=== PATIENT | male | born 2000 | race Two or more races ===

== ENCOUNTER 2020-04-20 11:14 | Observation (INO) | payer OTHER ==
[2020-04-20 11:20] VITALS: BMI 27.8
--- NOTE | 2020-04-20 12:21 | PDOC ---
History of Present Illness <Misty Montelongo - Last Filed: 04/20/20 14:38> - General History Source: Patient Exam Limitations: No Limitations - History of Present Illness Travel History: No Initial Comments: 04/20/20 12:13 19 y/o male presents to ED with complaints of palpitations for the past 6 days without shortness of breath, chest pain, dizziness, nausea, or diaphoresis. Patient feels it may be related to his drinking since he states has been drinking more often over the past month drinking approximately 2 glasses of vodka every other day patient has no other complaints at this time denies any medical history. Patient denies any increased stress and denies any aggravating or alleviating factors stating symptoms only last seconds. Patient denies any cardiac familial history Timing/Duration: reports: intermittent Quality: reports: mild Pain Radiation: reports: no radiation Aggravating Factors: improves with: None Alleviating Factors: improves with: None <Jenni Duong - Last Filed: 04/20/20 14:55> - General Chief Complaint: Palpitations Stated Complaint: CHEST DISCOMFORT Time Seen by Provider: 04/20/20 11:38 Past History <Misty Montelongo - Last Filed: 04/20/20 14:38> - Travel History Traveled outside of the country in the last 30 days: No Close contact w/someone who was outside of country & ill: No - Medical History COPD: No - Immunization History Immunization Up to Date: No - Psycho-Social/Smoking History Patient Lives Alone: No Lives with/in: parents Smoking History: Current every day smoker Information on smoking cessation initiated: No - Substance Abuse Hx (Audit-C & DAST Scrn) How often the patient has a drink containing alcohol: 2-3 times / week Number of drinks the patient has on a typical day: 1 or 2 How often the patient has six or more drinks on one occasion: Never Score: In Men: 4 or > Positive; In Women: 3 or > Positive: 3 Screen Result (Pos requires Nsg. Audit-10AR): Negative In the last yr the pt used illegal drug/Rx for NonMed reason: No Score: Yes response is considered Positive: 0 Screen Result (Positive result requires Nsg. DAST-10): Negative <Jenni Duong - Last Filed: 04/20/20 14:55> - Medical History Allergies/Adverse Reactions: Allergies Allergy/AdvReac Type Severity Reaction Status Date / Time No Known Allergies Allergy Verified 04/20/20 11:18 Review of Systems - Review of Systems Able to Perform ROS?: Yes Constitutional: No: Symptoms Reported HEENTM: No: Symptoms Reported Respiratory: No: Symptoms reported Cardiac (ROS): Yes: Palpitations ABD/GI: No: Symptoms Reported : No: Symptoms Reported Musculoskeletal: No: Symptoms Reported Integumentary: No: Symptoms Reported Neurological: No: Symptoms reported Endocrine: No: Symptoms Reported Hematologic/Lymphatic: No: Symptoms Reported <Jenni Duong - Last Filed: 04/20/20 14:55> *Physical Exam - Vital Signs Last Vital Signs Temp Pulse Resp BP Pulse Ox 98.1 F 95 H 18 153/93 98 04/20/20 11:18 04/20/20 11:18 04/20/20 11:18 04/20/20 11:18 04/20/20 11:20 <MontelongoMistyshad Medleywei - Last Filed: 04/20/20 14:38> - Vital Signs Last Vital Signs Temp Pulse Resp BP Pulse Ox 98.1 F 95 H 18 153/93 100 04/20/20 11:18 04/20/20 11:18 04/20/20 11:18 04/20/20 11:18 04/20/20 11:18 - Physical Exam General Appearance: Yes: Nourished, Appropriately Dressed. No: Apparent Distress HEENT: negative: Pale Conjunctivae Neck: positive: Supple Respiratory/Chest: positive: Lungs Clear, Normal Breath Sounds. negative: Chest Tender, Respiratory Distress, Accessory Muscle Use Cardiovascular: positive: Regular Rhythm, Regular Rate. negative: Murmur Gastrointestinal/Abdominal: positive: Soft. negative: Tenderness Extremity: positive: Normal Inspection Integumentary: positive: Normal Color, Warm, Moist Neurologic: positive: Normal Mood/Affect (Appears calm), Motor Strength 5/5 (Ambulatory) <Jenni Duong - Last Filed: 04/20/20 14:55> Heart Score/ECG Review #2 ECG reviewed & interpreted by me at: 14:54 General ECG Interpretation: Sinus Rhythm (rate 61, + early repolarization) - ECG Intrepretation Rhythm: Regular Rhythm (Normal sinus rhythm at 95. No ST elevation or depression. Intervals are regular. QTc 457 ms) <Jenni Duong - Last Filed: 04/20/20 14:55> ED Treatment Course - LABORATORY CBC & Chemistry Diagram: 04/20/20 12:15 - ADDITIONAL ORDERS Additional order review: Laboratory Results 04/20/20 12:15 Sodium 138 Potassium 3.9 Chloride 107 Carbon Dioxide 25 Anion Gap 6 L BUN 14.3 Creatinine 0.8 Est GFR (CKD-EPI)AfAm 148.00 Est GFR (CKD-EPI)NonAf 127.70 Random Glucose 97 Calcium 9.2 Magnesium 2.5 H Total Bilirubin 0.9 AST 38 H ALT 60 Alkaline Phosphatase 87 Creatine Kinase 311 H Creatine Kinase Index 1.3 CK-MB (CK-2) 4.3 H Troponin I 0.07 H Total Protein 7.7 Albumin 4.3 TSH 1.33 <Misty Montelongo - Last Filed: 04/20/20 14:38> - LABORATORY CBC & Chemistry Diagram: 04/20/20 12:15 <Jenni Duong - Last Filed: 04/20/20 14:55> Medical Decision Making - Medical Decision Making 04/20/20 14:31 The patient was seen and evaluated in conjunction with midlevel provider under my direct supervision, ancillary studies were reviewed. I agree with the plan as outlined OTR VAN [employer] Ad. HPI, workup/dispo as outlined. VS reviewed, labs/lytes wnl. cbc +alcohol user. trop is 0.07, EKG is sinus rhythm, [address] elevations or depressions, there are some q waves in inferior leads. ?NSTEMI vs. alcohol induced cardiomyopathy or myocarditis based on story. admit tele 04/20/20 14:38 <Misty Montelongo - Last Filed: 04/20/20 14:38> - Medical Decision Making 04/20/20 12:25 Chief complaint: Palpitations intermittently for the past 6 days without alleviating or aggravating factors. Patient has no other complaints is concerned that maybe the drinking has attributed to his symptoms. Exam: Patient with normal vital signs EKG normal sinus rhythm. Normal PE. 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 Case discussed with attending. Patient ordered for second Trope, fluids, IV cardiac monitoring drug tox and alcohol level. We will admit to hospitalist. Patient aware patient moved to holding and is currently asymptomatic. 04/20/20 14:52 Case discussed with hospitalist and will admit to Dr. Fabian. Second EKG normal sinus with a rate of 61 with early repolarization. Admission initiated <Jenni Duong - Last Filed: 04/20/20 14:55> Discharge <Misty Montelongo - Last Filed: 04/20/20 14:38> - Discharge Information Problems reviewed: Yes - Admission Yes <Jenni Duong - Last Filed: 04/20/20 14:55> - Discharge Information Clinical Impression/Diagnosis: Elevated troponin, Palpitations
[2020-04-20 13:12] LABS: ALBUMIN 4.3 g/dl (3.4-5.0); BILIRUBIN,TOTAL 0.9 mg/dL (0.2-1); BLOOD UREA NITROGEN 14.3 mg/dL (7-18); CALCIUM 9.2 mg/dL (8.5-10.1); CREATININE 0.8 mg/dL (0.55-1.3); MAGNESIUM 2.5 mg/dL (1.8-2.4); POTASSIUM 3.9 mmol/L (3.5-5.1); TOT PROT 7.7 g/dl (6.4-8.2)
[2020-04-20] MEDS ORDERED: SODIUM CHLORIDE 1,000 ML IV STA (14:37)
[2020-04-20 15:36] LABS: BASO % 0.5 % (0-2.0); EOS % 1.8 % (0-4.5); HEMOGLOBIN 17.5 GM/dL (11.7-16.9); LYMPH % 26.8 % (8-40); MCH 29.3 pg (25.7-33.7); MCHC 34.4 g/dl (32.0-35.9); MEAN CELL VOLUME 85.1 fl (80-96); MONO % 5.9 % (3.8-10.2); PLATELET COUNT 192 K/MM3 (134-434); RBC 5.99 M/mm3 (4.00-5.60); RDW 13.2 % (11.9-15.9); WHITE BLOOD COUNT 6.6 K/mm3 (4.0-10.0)
[2020-04-20] MEDS ORDERED: SODIUM CHLORIDE 500 ML IV STA (15:38)
--- NOTE | 2020-04-20 15:43 | HP ---
CHIEF COMPLAINT: I have rapid heart beats PCP: none HISTORY OF PRESENT ILLNESS: 19 Y M with no significant PMH presents to ER with complaints of palpitation for 6 days. He report it was sudden onset, first episode, no prior, no initiating factor/events, episodic, lasting anywhere form seconds to minutes, and resolves spontaneously. He describes it as "skipped beat followed by few rapid beats". Associated with chest tightness at times, but he denies any associated headache, nausea, vomiting, diaphoresis, tingling, numbness, SOB during the episodes. He denies any illicit drugs, caffeine, workout supplements, weight loss supplements, herbal medication use but admits to everyday alcohol and cigarettes use. He reports that he drinks about 2 glasses of vodka every day, for about 1 year and smokes 2-3 cigs per/day, for 6 months. Patient reports cardiac disease in his father(unknown). No family history of sudden cardiac deaths, no other relatives with cardiac diseases. ER course was notable for: (1) Trop 0.07 (2) ALKP 311 (3) Recent Travel: Denies PAST MEDICAL HISTORY: denies PAST SURGICAL HISTORY: denies Social History: Smoking:as above in HPI Alcohol: above in HPI Drugs: denies Allergies No Known Allergies Allergy (Verified 04/20/20 11:18) HOME MEDICATIONS: REVIEW OF SYSTEMS CONSTITUTIONAL: Absent: fever, chills, diaphoresis, generalized weakness, malaise, loss of appetite, weight change HEENT: Absent: rhinorrhea, nasal congestion, throat pain, throat swelling, difficulty swallowing, visual changes CARDIOVASCULAR: Absent: chest pain, syncope, palpitations, irregular heart rate, lightheadedness, peripheral edema RESPIRATORY: Absent: cough, shortness of breath, dyspnea with exertion, orthopnea, wheezing, GASTROINTESTINAL: Absent: abdominal pain, abdominal distension, nausea, vomiting, diarrhea, constipation, melena, hematochezia GENITOURINARY: Absent: dysuria, frequency, urgency, hesitancy, hematuria, flank pain, genital pain MUSCULOSKELETAL: Absent: myalgia, arthralgia, joint swelling, back pain, neck pain SKIN: Absent: rash, itching, pallor HEMATOLOGIC/IMMUNOLOGIC: Absent: easy bleeding, easy bruising, lymphadenopathy, frequent infections ENDOCRINE: Absent: unexplained weight gain, unexplained weight loss, heat intolerance, cold intolerance NEUROLOGIC: Absent: headache, focal weakness or paresthesias, dizziness, unsteady gait, seizure, mental status changes, bladder or bowel incontinence PSYCHIATRIC: Absent: anxiety, depression, suicidal or homicidal ideation, hallucinations. PHYSICAL EXAMINATION Vital Signs - 24 hr 04/20/20 04/20/20 11:18 11:20 Temperature 98.1 F Pulse Rate 95 H Respiratory 18 Rate Blood Pressure 153/93 O2 Sat by Pulse 100 98 Oximetry (%) GENERAL: Awake, alert, and fully oriented, in no acute distress. HEAD: Normal with no signs of trauma. EYES: Pupils equal, round and reactive to light, extraocular movements intact, sclera anicteric, conjunctiva clear. No lid lag. EARS, NOSE, THROAT: Ears normal, nares patent, oropharynx clear without exudates. Moist mucous membranes. NECK: Normal range of motion, supple without lymphadenopathy, JVD, or masses, no thyromegly, no nodules LUNGS: Breath sounds equal, clear to auscultation bilaterally. No wheezes, and no crackles. No accessory muscle use. HEART: Regular rate and rhythm with episodes of aberrant beat, normal S1 and S2 without murmur, rub or gallop. ABDOMEN: Soft, nontender, not distended, normoactive bowel sounds, no guarding, no rebound, no masses. No hepatomegaly or splenomegaly. MUSCULOSKELETAL: Normal range of motion at all joints. No bony deformities or tenderness. No CVA tenderness. UPPER EXTREMITIES: 2+ pulses, warm, well-perfused. No cyanosis. No clubbing. No peripheral edema. LOWER EXTREMITIES: 2+ pulses, warm, well-perfused. No calf tenderness. No peripheral edema. NEUROLOGICAL: Cranial nerves II-XII intact. Normal speech. Normal gait. PSYCHIATRIC: Cooperative. Good eye contact. Appropriate mood and affect. SKIN: Warm, dry, normal turgor, no rashes or lesions noted, normal capillary refill. Laboratory Results - last 24 hr 04/20/20 04/20/20 12:15 14:43 WBC 6.6 RBC 5.99 H Hgb 17.5 H Hct 51.0 H MCV 85.1 MCH 29.3 MCHC 34.4 RDW 13.2 Plt Count 192 MPV 9.0 Absolute Neuts (auto) 4.3 Neutrophils % 65.0 Lymphocytes % 26.8 Monocytes % 5.9 Eosinophils % 1.8 Basophils % 0.5 Nucleated RBC % 2 H Sodium 138 Potassium 3.9 Chloride 107 Carbon Dioxide 25 Anion Gap 6 L BUN 14.3 Creatinine 0.8 Est GFR (CKD-EPI)AfAm 148.00 Est GFR (CKD-EPI)NonAf 127.70 Random Glucose 97 Calcium 9.2 Magnesium 2.5 H Total Bilirubin 0.9 AST 38 H ALT 60 Alkaline Phosphatase 87 Creatine Kinase 311 H Creatine Kinase Index 1.3 CK-MB (CK-2) 4.3 H Troponin I 0.07 H Total Protein 7.7 Albumin 4.3 TSH 1.33 ASSESSMENT/PLAN: 19 Y M with no significant PMH presents to ER with complaints of palpitation for 6 days #Palpitations - PACs vs PVCs vs Alcohol induced afib - Admitted to Obs, continuos cardiac monitoring overnight - will trend Trops, 0.07, 0.05 - Utox: negative - If overnight events are unrevealing, patient may benefit from cardiology outpatient evaluation with cardiac event monitor #Elevated troponin - Likely 2/2 demand - Trending trops - EKG: NSR, No acute ST/T wave changes #Polycythemia - will need outpt evaluation with heme-onc - possible etiology: TERRENCE, will need sleep study out pt #DVT ppx -SCDs #Dispo: - will continue to monitor in observation Family Medical History Family History: As Documented Visit type - Emergency Visit Emergency Visit: Yes ED Registration Date: 04/20/20 Care time: The patient presented to the Emergency Department on the above date and was hospitalized for further evaluation of their emergent condition. - New Patient This patient is new to me today: No - Critical Care Critical Care patient: No ATTENDING PHYSICIAN STATEMENT I saw and evaluated the patient. I reviewed the resident's note and discussed the case with the resident. I agree with the resident's findings and plan as documented. SUBJECTIVE: OBJECTIVE: ASSESSMENT AND PLAN:
[2020-04-20 15:44] LABS: COCAINE, UR NEGATIVE ng/ml (CUTOFF=300); OPIATES, URI NEGATIVE ng/ml (CUTOFF=300); PHENCYCLIDINE,URINE NEGATIVE ng/ml (CUTOFF=25); URINE AMPHETAMINES NEGATIVE ng/ml (CUTOFF=500); URINE BARBITURATES NEGATIVE ng/ml (CUTOFF=200)
[2020-04-20 15:56] LABS: METHADONE, UR NEGATIVE ng/ml (CUTOFF=300); URINE BENZODIAZEPINES NEGATIVE ng/ml (CUTOFF=200)
--- NOTE | 2020-04-20 17:08 | PN ---
Teaching Attending Note Name of Resident: Kait Harrison ATTENDING PHYSICIAN STATEMENT I saw and evaluated the patient. I reviewed the resident's note and discussed the case with the resident. I agree with the resident's findings and plan as documented. SUBJECTIVE: 19yo M with no PMHx who presents today with persistent palpitations. Patient reports they started a week prior with intermittent episodes lasting for various times. Patient endorses associated chest tightness during episodes, but denies any diaphoresis or SOB during. Patient notes that he has been drinking Vodka everyday over several months. he denies any cocaine, crack, or ectasy use. Patient reports his father has a history of cardiac disease related to his drinking (father age 50 yo), however no other primary relatives have cardiac disease. Patient denies fever/chills, recent illness, SOB, CP, abdominal pain, dysuria, polyuria, diarrhea/constipation, n/v, cold/heat intolerance, tremoring, recent weight changes. OBJECTIVE: Vital Signs Temperature 98.0 F 04/20/20 15:39 Pulse Rate 75 04/20/20 15:39 Respiratory Rate 17 04/20/20 15:39 Blood Pressure 132/78 04/20/20 15:39 O2 Sat by Pulse Oximetry (%) 100 04/20/20 15:39 PE: Gen: NAd, awake, alert, oriented x3 HEENT: nc/At, SHELL, sclera anicteric, MMM Neck: No JVD, no thyromegaly or nodularity LUNG: CTA b/l without wheezes or rales CARD: RRR with episodes of abherrant beat, no overt murmurs. S1 and S2 present and normal ABD: soft, NT/ND, + Bs, no hepatomegaly EXT: 2+ pulses, no edema CBC, BMP 04/20/20 14:43 04/20/20 12:15 ASSESSMENT AND PLAN: Palpitations Alcohol Use Polycythemia Elevated Troponin --PAC vs. PVC vs. alcohol induced afib --Cardiac monitoring overnight --Trend troponins to peak --Monitor polycythemia through outpatient setting; may need sleep screen if no clear etiology found --If overnight monitoring is unrevealing may need to be d/c with cardiology fol low-up for event monitor Dispo: Observation Marco Fabian, - IM
--- NOTE | 2020-04-20 18:27 | CON.CARD ---
Consult Consult Specialty:: Cardiology Referred by:: Hospitalist Medicine Reason for Consultation:: Palpitations - History of Present Illness Chief Complaint: Palpitations History of Present Illness: 19yo M with no PMHx who presents today with intermmitent palpitations without associated chest tightness, diaphoresis, SOB, near or true syncope. Patient notes that he has been drinking Vodka everyday over several months and smokes tobacco. he denies any cocaine, crack, or ectasy use. Patient reports his father has a history of cardiac disease related to his drinking (father age 50 yo), however no other primary relatives have cardiac disease. No sustained arrhythmias on property assessment monitor thus far. - History Source History Provided By: Patient Limitations to Obtaining History: No Limitations - Smoking History Smoking history: Current every day smoker Home Medications - Allergies Allergies/Adverse Reactions: Allergies Allergy/AdvReac Type Severity Reaction Status Date / Time No Known Allergies Allergy Verified 04/20/20 11:18 Review of Systems - Review of Systems Cardiovascular: reports: Palpitations Vital Signs: Vital Signs Temperature 98.0 F 04/20/20 15:39 Pulse Rate 75 04/20/20 15:39 Respiratory Rate 17 04/20/20 15:39 Blood Pressure 132/78 04/20/20 15:39 O2 Sat by Pulse Oximetry (%) 100 04/20/20 15:39 Constitutional: Yes: No Distress, Calm Neck: Yes: Supple Respiratory: Yes: Regular, CTA Bilaterally Gastrointestinal: Yes: Normal Bowel Sounds, Soft Cardiovascular: Yes: Regular Rate and Rhythm JVD: No Carotid Bruit: No Heart Sounds: Yes: S1, S2 Edema: No - Other Data Labs, Other Data: CBC, BMP 04/20/20 14:43 04/20/20 12:15 Troponin, BNP 04/20/20 04/20/20 12:15 15:00 Troponin I 0.07 H 0.05 Troponin, BNP 04/20/20 04/20/20 12:15 15:00 Troponin I 0.07 H 0.05 #1 NSR @ 95 w/o ST-T changes #2 NSR @ 61 w/o ST-T changes Ejection Fraction %: LVEF > or = 40 % Problem List - Problems (1) Demand ischemia Code(s): I24.8 - OTHER FORMS OF ACUTE ISCHEMIC HEART DISEASE (2) Alcohol abuse Code(s): F10.10 - ALCOHOL ABUSE, UNCOMPLICATED (3) Palpitations Code(s): R00.2 - PALPITATIONS (4) Polycythemia Code(s): D75.1 - SECONDARY POLYCYTHEMIA Assessment/Plan 1. Palpitations, consider PAC vs. PVC vs. alcohol induced afib 2. Alcohol and tobacco abuse 3. Polycythemia 4. Demand ischemia P: 1. Telemetry monitoring to assess sustained arrhythmia 2. Troponins downtrending 3. Monitor polycythemia through outpatient setting, may be 2/2 smoking, may need sleep screen if no clear etiology found 4. If overnight monitoring is unrevealing may benefit from outpatient holter monitor 5. Counselled on ETOH and tobacco abstinence 6. Thank you for consultative opportunity
[2020-04-21 07:43] LABS: BASO % 0.3 % (0-2.0); EOS % 3.2 % (0-4.5); HEMATOCRIT 50.8 % (35.4-49); HEMOGLOBIN 17.4 GM/dL (11.7-16.9); LYMPH % 36.1 % (8-40); MCH 29.1 pg (25.7-33.7); MCHC 34.3 g/dl (32.0-35.9); MEAN CELL VOLUME 84.7 fl (80-96); MEAN PLT VOLUME 8.7 fl (7.5-11.1); MONO % 7.6 % (3.8-10.2); NEUT % 52.8 % (42.8-82.8); PLATELET COUNT 181 K/MM3 (134-434); WHITE BLOOD COUNT 6.1 K/mm3 (4.0-10.0)
[2020-04-21 07:58] LABS: BILIRUBIN,TOTAL 1.3 mg/dL (0.2-1); BLOOD UREA NITROGEN 10.6 mg/dL (7-18); CALCIUM 8.8 mg/dL (8.5-10.1); CREATININE 0.9 mg/dL (0.55-1.3); MAGNESIUM 2.3 mg/dL (1.8-2.4); PHOSPHOROUS 4.4 mg/dL (2.5-4.9); POTASSIUM 3.5 mmol/L (3.5-5.1); TOT PROT 7.3 g/dl (6.4-8.2)
--- NOTE | 2020-04-21 10:00 | PN ---
Progress Note, Physician History of Present Illness: 19yo M with no PMHx who presents today with intermmitent palpitations without associated chest tightness, diaphoresis, SOB, near or true syncope. Patient notes that he has been drinking Vodka everyday over several months and smokes tobacco. he denies any cocaine, crack, or ectasy use. Patient reports his father has a history of cardiac disease related to his drinking (father age 50 yo), ho wever no other primary relatives have cardiac disease. No sustained arrhythmias on ekg monitor tech thus far. - Objective Vital Signs: Vital Signs Temperature 97.9 F 04/21/20 06:17 Pulse Rate 64 04/21/20 06:17 Respiratory Rate 16 04/21/20 06:46 Blood Pressure 123/59 L 04/21/20 06:17 O2 Sat by Pulse Oximetry (%) 100 04/21/20 06:46 Eyes: Yes: WNL, Conjunctiva Clear, EOM Intact HENT: Yes: WNL, Atraumatic, Normocephalic Neck: Yes: WNL, Supple, Trachea Midline Cardiovascular: Yes: WNL, Regular Rate and Rhythm Respiratory: Yes: WNL, Regular, CTA Bilaterally Gastrointestinal: Yes: WNL, Normal Bowel Sounds Genitourinary: Yes: WNL Musculoskeletal: Yes: WNL Extremities: Yes: WNL Edema: No Integumentary: Yes: WNL Neurological: Yes: WNL, Alert, Oriented ...Motor Strength: WNL Psychiatric: Yes: WNL Labs: CBC, BMP 04/21/20 06:55 04/21/20 06:55 Assessment/Plan - Problems (1) Demand ischemia Code(s): I24.8 - OTHER FORMS OF ACUTE ISCHEMIC HEART DISEASE (2) Alcohol abuse Code(s): F10.10 - ALCOHOL ABUSE, UNCOMPLICATED (3) Palpitations Code(s): R00.2 - PALPITATIONS (4) Polycythemia Code(s): D75.1 - SECONDARY POLYCYTHEMIA Assessment/Plan 1. Palpitations, consider PAC vs. PVC vs. alcohol induced afib 2. Alcohol and tobacco abuse 3. Polycythemia 4. Demand ischemia P: 1. Telemetry monitoring to assess sustained arrhythmia 2. Troponins downtrending 3. Monitor polycythemia through outpatient setting, may be 2/2 smoking, may need sleep screen if no clear etiology found 4.Will need ECHO as inpatient prior to discharge to r/o ETOH induced ca rdiomyopathy. 5. Counselled on ETOH and tobacco abstinence
--- NOTE | 2020-04-21 14:13 | PN ---
Physical Exam: SUBJECTIVE: Patient seen and examined at bedside. No acute events reported overnight. This morning, patient has no concerns or complaints. OBJECTIVE: Vital Signs Period Temp Pulse Resp BP Sys/Bernstein Pulse Ox Last 24 Hr 97.8 F-98.3 F 56-75 16-18 120-155/59-88 99-100 GENERAL: AAOx3, in no acute distress HEENT: NCAT, PERRLA, EOMI, sclera anicteric, conjunctiva clear, oropharynx clear w/o exudates. MMM. NECK: Normal ROM, supple, no lymphadenopathy, JVD, or masses LUNGS: CTABL no wheezes/ rhonchi/ rales. No distress, speaks in full sentences. No increased work of breathing. HEART: RRR, normal S1 S2, no M/R/G, peripheral pulses 2+ and equal b/l ABDOMEN: Soft, NTND, + BS. No guarding or rebound. No hepatomegaly or splenomegaly. MSK: ROM WNL EXTREMITIES: Normal inspection. No peripheral edema. No clubbing or cyanosis. NEUROLOGICAL: CN II-XII intact. Normal speech, normal gait, no focal sensori motor deficits. SKIN: Warm, Dry, normal turgor, no rashes or lesions noted Laboratory Results - last 24 hr CBC, BMP 04/21/20 06:55 04/21/20 06:55 04/20/20 04/20/20 04/20/20 14:00 14:43 15:00 WBC 6.6 RBC 5.99 H Hgb 17.5 H Hct 51.0 H MCV 85.1 MCH 29.3 MCHC 34.4 RDW 13.2 Plt Count 192 MPV 9.0 Absolute Neuts (auto) 4.3 Neutrophils % 65.0 Lymphocytes % 26.8 Monocytes % 5.9 Eosinophils % 1.8 Basophils % 0.5 Nucleated RBC % 2 H Sodium Potassium Chloride Carbon Dioxide Anion Gap BUN Creatinine Est GFR (CKD-EPI)AfAm Est GFR (CKD-EPI)NonAf Random Glucose Calcium Phosphorus Magnesium Total Bilirubin AST ALT Alkaline Phosphatase Creatine Kinase 282 Creatine Kinase Index 1.4 CK-MB (CK-2) 4.0 H Troponin I 0.05 Total Protein Albumin TSH Opiates Screen Methadone Screen Barbiturate Screen Phencyclidine Screen Ur Amphetamines Screen MDMA (Ecstasy) Screen Benzodiazepines Screen Cocaine Screen U Marijuana (THC) Screen Alcohol, Quantitative < 3 COVID-19 (BOO) Not detected 04/20/20 04/20/20 04/21/20 15:00 22:00 06:55 WBC 6.1 RBC 6.00 H Hgb 17.4 H Hct 50.8 H MCV 84.7 MCH 29.1 MCHC 34.3 RDW 13.0 Plt Count 181 MPV 8.7 Absolute Neuts (auto) 3.2 Neutrophils % 52.8 Lymphocytes % 36.1 D Monocytes % 7.6 Eosinophils % 3.2 Basophils % 0.3 Nucleated RBC % 0 Sodium Potassium Chloride Carbon Dioxide Anion Gap BUN Creatinine Est GFR (CKD-EPI)AfAm Est GFR (CKD-EPI)NonAf Random Glucose Calcium Phosphorus Magnesium Total Bilirubin AST ALT Alkaline Phosphatase Creatine Kinase 233 Creatine Kinase Index 1.2 CK-MB (CK-2) 2.9 Troponin I 0.05 Total Protein Albumin TSH Opiates Screen Negative Methadone Screen Negative Barbiturate Screen Negative Phencyclidine Screen Negative Ur Amphetamines Screen Negative MDMA (Ecstasy) Screen Negative Benzodiazepines Screen Negative Cocaine Screen Negative U Marijuana (THC) Screen Negative Alcohol, Quantitative COVID-19 (BOO) 04/21/20 06:55 WBC RBC Hgb Hct MCV MCH MCHC RDW Plt Count MPV Absolute Neuts (auto) Neutrophils % Lymphocytes % Monocytes % Eosinophils % Basophils % Nucleated RBC % Sodium 139 Potassium 3.5 Chloride 105 Carbon Dioxide 27 Anion Gap 7 L BUN 10.6 Creatinine 0.9 Est GFR (CKD-EPI)AfAm 141.01 Est GFR (CKD-EPI)NonAf 121.66 Random Glucose 84 Calcium 8.8 Phosphorus 4.4 Magnesium 2.3 Total Bilirubin 1.3 H AST 34 ALT 58 Alkaline Phosphatase 81 Creatine Kinase Creatine Kinase Index CK-MB (CK-2) Troponin I 0.04 Total Protein 7.3 Albumin 4.0 TSH 2.18 D Opiates Screen Methadone Screen Barbiturate Screen Phencyclidine Screen Ur Amphetamines Screen MDMA (Ecstasy) Screen Benzodiazepines Screen Cocaine Screen U Marijuana (THC) Screen Alcohol, Quantitative COVID-19 (BOO) ASSESSMENT/PLAN: 19 Y M with no significant PMH presents to ER with complaints of palpitation for 7 days. Admitted for chest pain. #Palpitations - PACs vs PVCs vs Alcohol induced afib - continue to trend Trops, 0.07, 0.05, 0.04 - Utox: negative - Cardiology consulted: Pt. needs inpt echo before d/c to rule out alcohol induced cardiomyopathy. patient may benefit from cardiology outpatient evalu ation with cardiac event monitor -echo ordered #Elevated troponin - Likely 2/2 demand - Trending trops - EKG: NSR, No acute ST/T wave changes #Polycythemia - will need outpt evaluation with heme-onc - possible etiology: TERRENCE, will need sleep study out pt #FEN -no standing fluids -montior lytes; replete PRN -regular diet #Dispo: - will continue to monitor in observation Visit type - Emergency Visit Emergency Visit: No - New Patient This patient is new to me today: Yes Date on this admission: 04/21/20 - Critical Care Critical Care patient: No ATTENDING PHYSICIAN STATEMENT I saw and evaluated the patient. I reviewed the resident's note and discussed the case with the resident. I agree with the resident's findings and plan as documented. SUBJECTIVE: OBJECTIVE: ASSESSMENT AND PLAN:
--- NOTE | 2020-04-21 14:52 | PN ---
Teaching Attending Note Name of Resident: Jorge Quispe ATTENDING PHYSICIAN STATEMENT I saw and evaluated the patient. I reviewed the resident's note and discussed the case with the resident. I agree with the resident's findings and plan as documented. SUBJECTIVE: No chest pain today seen by bit bender. No arrhythmia on telemetry OBJECTIVE: Vital Signs Period Temp Pulse Resp BP Sys/Bernstein Pulse Ox Last 24 Hr 97.8 F-98.3 F 56-75 16-18 120-155/59-88 99-100 Patient is comfortable HEENT normal Neck supple no JVD Lungs clear no wheezing Abdomen nontender no organomegaly bowel sounds normal Extremities no edema no cyanosis normal pulses Neurologically he is alert awake oriented, nonfocal Skin no rash noted ASSESSMENT AND PLAN: Patient has a downtrending troponin and normal today. Seen by bit bender and recommended the patient should go for echocardiogram prior to discharge. He is pain-free at this time we will continue to watch him and will go for echo result before discharge.
--- NOTE | 2020-04-21 14:59 | EKG ---
Test Reason : Blood Pressure : / mmHG Vent. Rate : 095 BPM Atrial Rate : 095 BPM P-R Int : 136 ms QRS Dur : 084 ms QT Int : 364 ms P-R-T Axes : 074 090 059 degrees QTc Int : 457 ms NORMAL SINUS RHYTHM POSSIBLE LEFT ATRIAL ENLARGEMENT RIGHTWARD AXIS BORDERLINE ECG NO PREVIOUS ECGS AVAILABLE Confirmed by Westley Self ([id number]) on 04/21/2020 2:59:11 PM Referred By: Confirmed By:Westley Self
--- NOTE | 2020-04-21 14:59 | EKG ---
Test Reason : Blood Pressure : / mmHG Vent. Rate : 061 BPM Atrial Rate : 061 BPM P-R Int : 128 ms QRS Dur : 090 ms QT Int : 424 ms P-R-T Axes : 036 088 065 degrees QTc Int : 426 ms NORMAL SINUS RHYTHM EARLY REPOLARIZATION NORMAL ECG NO PREVIOUS ECGS AVAILABLE Confirmed by Westley Self ([id number]) on 04/21/2020 2:58:48 PM Referred By: Confirmed By:Westley Self
--- NOTE | 2020-04-21 15:20 | EKG ---
Test Reason : Blood Pressure : / mmHG Vent. Rate : 069 BPM Atrial Rate : 069 BPM P-R Int : 132 ms QRS Dur : 092 ms QT Int : 394 ms P-R-T Axes : 060 088 068 degrees QTc Int : 422 ms NORMAL SINUS RHYTHM NORMAL ECG WHEN COMPARED WITH ECG OF 20-APR-2020 14:46, NO SIGNIFICANT CHANGE WAS FOUND Confirmed by Westley Self ([id number]) on 04/21/2020 3:20:33 PM Referred By: Derrick CAMACHO Confirmed By:Westley Self
[2020-04-22 06:47] LABS: BASO % 0.5 % (0-2.0); EOS % 2.9 % (0-4.5); HEMATOCRIT 52.2 % (35.4-49); HEMOGLOBIN 17.9 GM/dL (11.7-16.9); LYMPH % 32.6 % (8-40); MCH 28.9 pg (25.7-33.7); MCHC 34.3 g/dl (32.0-35.9); MEAN CELL VOLUME 84.2 fl (80-96); MEAN PLT VOLUME 8.5 fl (7.5-11.1); MONO % 7.8 % (3.8-10.2); NEUT % 56.2 % (42.8-82.8); PLATELET COUNT 193 K/MM3 (134-434); RDW 12.8 % (11.9-15.9); WHITE BLOOD COUNT 6.3 K/mm3 (4.0-10.0)
[2020-04-22 07:18] LABS: ALBUMIN 4.1 g/dl (3.4-5.0); BILIRUBIN,DIRECT 0.3 mg/dL (0.0-0.2); BILIRUBIN,TOTAL 1.2 mg/dL (0.2-1); BLOOD UREA NITROGEN 14.7 mg/dL (7-18); CALCIUM 9.2 mg/dL (8.5-10.1); CREATININE 1.1 mg/dL (0.55-1.3); POTASSIUM 4.1 mmol/L (3.5-5.1); TOT PROT 7.6 g/dl (6.4-8.2)
--- NOTE | 2020-04-22 08:34 | PN ---
Progress Note, Physician History of Present Illness: 19yo M with no PMHx who presents today with intermmitent palpitations without associated chest tightness, diaphoresis, SOB, near or true syncope. Patient notes that he has been drinking Vodka everyday over several months and smokes tobacco. he denies any cocaine, crack, or ectasy use. Patient reports his father has a history of cardiac disease related to his drinking (father age 50 yo), ho wever no other primary relatives have cardiac disease. No sustained arrhythmias on clinical operations specialist thus far. - Objective Vital Signs: Vital Signs Temperature 98.2 F 04/22/20 05:01 Pulse Rate 61 04/22/20 05:01 Respiratory Rate 18 04/22/20 05:01 Blood Pressure 135/83 04/22/20 05:01 O2 Sat by Pulse Oximetry (%) 99 04/22/20 05:05 Eyes: Yes: WNL, Conjunctiva Clear, EOM Intact HENT: Yes: WNL, Atraumatic, Normocephalic Neck: Yes: WNL, Supple, Trachea Midline Cardiovascular: Yes: WNL, Regular Rate and Rhythm Respiratory: Yes: WNL, Regular, CTA Bilaterally Gastrointestinal: Yes: WNL, Normal Bowel Sounds Genitourinary: Yes: WNL Musculoskeletal: Yes: WNL Extremities: Yes: WNL Edema: No Integumentary: Yes: WNL Neurological: Yes: WNL, Alert, Oriented ...Motor Strength: WNL Psychiatric: Yes: WNL Labs: CBC, BMP 04/22/20 06:29 04/22/20 06:29 Assessment/Plan - Problems (1) Demand ischemia Code(s): I24.8 - OTHER FORMS OF ACUTE ISCHEMIC HEART DISEASE (2) Alcohol abuse Code(s): F10.10 - ALCOHOL ABUSE, UNCOMPLICATED (3) Palpitations Code(s): R00.2 - PALPITATIONS (4) Polycythemia Code(s): D75.1 - SECONDARY POLYCYTHEMIA Assessment/Plan 1. Palpitations, consider PAC vs. PVC vs. alcohol induced afib 2. Alcohol and tobacco abuse 3. Polycythemia 4. Demand ischemia P: 1. Telemetry monitoring to assess sustained arrhythmia 2. Troponins downtrending 3. Monitor polycythemia through outpatient setting, may be 2/2 smoking, may need sleep screen if no clear etiology found 4.Will need ECHO as inpatient prior to discharge to r/o ETOH induced card iomyopathy. 5. Counselled on ETOH and tobacco abstinence
[2020-04-22] MEDS ORDERED: PT OWN MED DRAWER 7, Y5N ONE (09:46)
--- NOTE | 2020-04-22 12:58 | PN ---
Physical Exam: SUBJECTIVE: Patient seen and examined OBJECTIVE: Vital Signs Period Temp Pulse Resp BP Sys/Bernstein Pulse Ox Last 24 Hr 98.0 F-98.7 F 59-86 16-20 109-154/70-83 74-100 Patient is comfortable HEENT normal Neck supple no JVD Lungs clear no wheezing Heart examination, normal heart sounds no arrhythmia. Abdomen nontender no organomegaly bowel sounds normal Extremities no edema no cyanosis normal pulses Neurologically he is alert awake oriented, nonfocal Skin no rash noted Laboratory Results - last 24 hr 04/22/20 04/22/20 06:29 06:29 WBC 6.3 RBC 6.20 H Hgb 17.9 H Hct 52.2 H MCV 84.2 MCH 28.9 MCHC 34.3 RDW 12.8 Plt Count 193 MPV 8.5 Absolute Neuts (auto) 3.6 Neutrophils % 56.2 Lymphocytes % 32.6 Monocytes % 7.8 Eosinophils % 2.9 Basophils % 0.5 Nucleated RBC % 0 Sodium 141 Potassium 4.1 Chloride 106 Carbon Dioxide 28 Anion Gap 7 L BUN 14.7 Creatinine 1.1 Est GFR (CKD-EPI)AfAm 110.63 Est GFR (CKD-EPI)NonAf 95.45 Random Glucose 89 Calcium 9.2 Total Bilirubin 1.2 H Direct Bilirubin 0.3 H AST 26 ALT 56 Alkaline Phosphatase 83 Creatine Kinase 139 Troponin I 0.03 Total Protein 7.6 Albumin 4.1 ASSESSMENT/PLAN: Patient has a downtrending troponin and normal today. Seen by over short and damage clerk and recommended the patient should go for echocardiogram prior to discharge. He is pain-free at this time we will continue to watch him and will go for echo result before discharge. Echo still not done yet because of the holiday weekend. Will continue to monitor. Cardiology notes noted today appreciated Visit type - Emergency Visit Emergency Visit: Yes ED Registration Date: 04/20/20 Care time: The patient presented to the Emergency Department on the above date and was hospitalized for further evaluation of their emergent condition. - New Patient This patient is new to me today: No - Critical Care Critical Care patient: No - Discharge Referral Referred to [facility] No
--- NOTE | 2020-04-23 09:26 | PN ---
Progress Note, Physician History of Present Illness: 19yo M with no PMHx who presents today with intermmitent palpitations without associated chest tightness, diaphoresis, SOB, near or true syncope. Patient notes that he has been drinking Vodka everyday over several months and smokes tobacco. he denies any cocaine, crack, or ectasy use. Patient reports his father has a history of cardiac disease related to his drinking (father age 50 yo), ho wever no other primary relatives have cardiac disease. No sustained arrhythmias on youth nutritional monitor thus far. - Objective Vital Signs: Vital Signs Temperature 98.0 F 04/23/20 06:00 Pulse Rate 62 04/23/20 06:00 Respiratory Rate 18 04/23/20 06:00 Blood Pressure 121/62 04/23/20 06:00 O2 Sat by Pulse Oximetry (%) 100 04/23/20 06:00 Eyes: Yes: WNL, Conjunctiva Clear, EOM Intact HENT: Yes: WNL, Atraumatic, Normocephalic Neck: Yes: WNL, Supple, Trachea Midline Cardiovascular: Yes: WNL, Regular Rate and Rhythm Respiratory: Yes: WNL, Regular, CTA Bilaterally Gastrointestinal: Yes: WNL, Normal Bowel Sounds Genitourinary: Yes: WNL Musculoskeletal: Yes: WNL Extremities: Yes: WNL Edema: No Integumentary: Yes: WNL Neurological: Yes: WNL, Alert, Oriented ...Motor Strength: WNL Psychiatric: Yes: WNL Labs: CBC, BMP 04/22/20 06:29 04/22/20 06:29 Assessment/Plan - Problems (1) Demand ischemia Code(s): I24.8 - OTHER FORMS OF ACUTE ISCHEMIC HEART DISEASE (2) Alcohol abuse Code(s): F10.10 - ALCOHOL ABUSE, UNCOMPLICATED (3) Palpitations Code(s): R00.2 - PALPITATIONS (4) Polycythemia Code(s): D75.1 - SECONDARY POLYCYTHEMIA Assessment/Plan 1. Palpitations, consider PAC vs. PVC vs. alcohol induced afib 2. Alcohol and tobacco abuse 3. Polycythemia 4. Demand ischemia P: 1. Telemetry monitoring to assess sustained arrhythmia 2. Troponins downtrending 3. Monitor polycythemia through outpatient setting, may be 2/2 smoking, may need sleep screen if no clear etiology found 4.Will need ECHO as inpatient prior to discharge to r/o ETOH induced car diomyopathy. 5. Counselled on ETOH and tobacco abstinence coverage dr. Conrad
--- NOTE | 2020-04-23 10:23 | PN ---
Physical Exam: SUBJECTIVE: Patient seen and examined. No overnight events. No sustained arrythmias on telemetry noted. Denied palpitations, fevers, chills, shortness of breath, chest pain, nausea, vomiting or diarrhea, numbness or tingling. OBJECTIVE: Vital Signs Period Temp Pulse Resp BP Sys/Bernstein Pulse Ox Last 24 Hr 97.2 F-98.6 F 51-74 16-20 114-148/62-87 98-100 GENERAL: Alert and oriented. Not in acute distress. HEENT: NCAT, EOMI, moist mucus membranes. CARDIAC: RRR, s1, s2 present. No murmurs. RESPIRATORY: CTA b/l. No wheezes. ABDOMEN: Soft, nontender to palpation, nondistended, normoactive bowel sounds EXTREMITIES: warm, well-perfused. No edema. SKIN: Warm, dry. Tattoos on UE's. CBC, BMP 04/22/20 06:29 04/22/20 06:29 No active medications CXR; 04/20/2020 No acute pathology. ASSESSMENT/PLAN: 19 year old M with no significant PMH presented to the ED with complaint of palpitations for 7 days. Pt endorsed to drinking alcohol and smoking tobacco. 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 Palpitations secondary to PAC vs. PVC vs. Alcohol induced afib -Cardiology consulted. Recommended echo to r/o alcohol-induced cardiomyopathy prior to discharge. No echo done today due to holiday. Echo services will resume 04/24. -CXR as above. -EKG showed NSR. -troponin downtrending -Utox negative -Pending echo. Elevated troponin, improved -troponin downtrending -likely secondary to demand Polycythemia, unknown etiology. Possibly due to TERRENCE -will need outpatient workup to determine etiology - Consider sleep study to r/o TERRENCE induced polycythemia PPx -DVT: early ambulation FEN -No standing fluids -replete electrolytes as needed - Regular diet Dispo: echo tomorrow Visit type - Emergency Visit Emergency Visit: Yes ED Registration Date: 04/20/20 Care time: The patient presented to the Emergency Department on the above date and was hospitalized for further evaluation of their emergent condition. - New Patient This patient is new to me today: Yes Date on this admission: 04/23/20 - Critical Care Critical Care patient: No ATTENDING PHYSICIAN STATEMENT I saw and evaluated the patient. I reviewed the resident's note and discussed the case with the resident. I agree with the resident's findings and plan as documented. SUBJECTIVE: OBJECTIVE: ASSESSMENT AND PLAN:
--- NOTE | 2020-04-23 11:51 | PN ---
Teaching Attending Note Name of Resident: Kait Harrison ATTENDING PHYSICIAN STATEMENT I saw and evaluated the patient. I reviewed the resident's note and discussed the case with the resident. I agree with the resident's findings and plan as documented. Impression: 19 year old male here with palpitations SUBJECTIVE: No chest pain today seen by shellfish processing machine tender. No arrhythmia on telemetry OBJECTIVE: Vital Signs Period Temp Pulse Resp BP Sys/Bernstein Pulse Ox Last 24 Hr 97.8 F-98.3 F 56-75 16-18 120-155/59-88 99-100 Patient is comfortable HEENT normal Neck supple no JVD Lungs clear no wheezing Abdomen nontender no organomegaly bowel sounds normal Extremities no edema no cyanosis normal pulses Neurologically he is alert awake oriented, nonfocal Skin no rash noted ASSESSMENT AND PLAN: 19 year old male arrived with palpitations Troponin downtrending TSH ok Seen by shellfish processing machine tender and recommended the patient should go for echocardiogram prior to discharge. He is pain-free at this time we will continue to watch him and will go for echo result before discharge.
--- NOTE | 2020-04-24 10:50 | PN ---
Progress Note, Physician Chief Complaint: Events noted Not in distress History of Present Illness: Patient was seen and examined. Awake and alert. Chart was reviewed Denies chest pain, SOB or palpitations - Objective Vital Signs: Vital Signs Temperature 97.5 F L 04/24/20 09:00 Pulse Rate 71 04/24/20 10:03 Respiratory Rate 18 04/24/20 09:59 Blood Pressure 135/76 04/24/20 09:00 O2 Sat by Pulse Oximetry (%) 98 04/24/20 10:03 Eyes: Yes: PERRL HENT: Yes: Atraumatic Neck: Yes: Supple Cardiovascular: Yes: Regular Rate and Rhythm, S1, S2. No: Murmur Respiratory: Yes: CTA Bilaterally Gastrointestinal: Yes: Normal Bowel Sounds, Soft. No: Tenderness Edema: No Additional Findings/Remarks: - Review of Systems Constitutional: denies: Chills, Fever Cardiovascular: denies: Chest Pain, Palpitations, Shortness of Breath Respiratory: denies: Cough, Hemoptysis, Orthopnea, PND, SOB, SOB on Exertion Gastrointestinal: denies: Abdominal Pain, Constipation, Diarrhea, Melena, Nausea, Rectal Bleeding, Vomiting Genitourinary: denies: Dysuria, Hematuria Musculoskeletal: denies: Back Pain, Joint Pain Neurological: denies: Dizziness, Headache, Seizure, Syncope Labs: CBC, BMP 04/22/20 06:29 04/22/20 06:29 Problem List - Problems (1) Alcohol abuse Code(s): F10.10 - ALCOHOL ABUSE, UNCOMPLICATED (2) Demand ischemia Code(s): I24.8 - OTHER FORMS OF ACUTE ISCHEMIC HEART DISEASE (3) Palpitations Code(s): R00.2 - PALPITATIONS (4) Polycythemia Code(s): D75.1 - SECONDARY POLYCYTHEMIA Assessment/Plan 1. Palpitations 2. Alcohol and tobacco abuse 3. Polycythemia 4. Demand ischemia PLAN: 1. Telemetry monitoring to assess sustained arrhythmia 2. Troponins normalized 3. Monitor polycythemia through outpatient setting 4. Echocardiography to assess LV/RV and valvular function 5. ETOH counseling Further plans are to follow Henry Conrad MD
[2020-04-24 11:26] LABS: HEMATOCRIT 52.1 % (35.4-49); HEMOGLOBIN 17.6 GM/dL (11.7-16.9); MCH 28.4 pg (25.7-33.7); MCHC 33.8 g/dl (32.0-35.9); MEAN PLT VOLUME 8.8 fl (7.5-11.1); PLATELET COUNT 218 K/MM3 (134-434); RDW 13.2 % (11.9-15.9); WHITE BLOOD COUNT 6.7 K/mm3 (4.0-10.0)
[2020-04-24 11:47] LABS: ALBUMIN 4.3 g/dl (3.4-5.0); BILIRUBIN,TOTAL 1.1 mg/dL (0.2-1); CALCIUM 9.4 mg/dL (8.5-10.1); POTASSIUM 3.8 mmol/L (3.5-5.1); TOT PROT 7.7 g/dl (6.4-8.2)
--- NOTE | 2020-04-24 12:07 | ECHO ---
Version: 1 Name: AILYN PEGUERO Exam: Adult Echocardiogram Study Date: 04/24/2020, 11:13 AM Age: 19 Years MMode/2D Measurements & Calculations IVSd: 0.81 cm LVIDs: 3.1 cm LVIDd: 5.0 cm LVPWd: 0.89 cm LAV (MOD-bp): 44.0 ml ACS: 1.65 cm Ao root diam: 3.1 cm LVOT diam: 2.30 cm LA dimension: 3.3 cm Doppler Measurements & Calculations MV E max luis f: 68.0 cm/sec Med E/e': 9.1 MV A max luis f: 60.3 cm/sec Med Peak E' Luis F: 7.5 cm/sec MV E/A: 1.13 Lat E/e': 5.1 Lat Peak E' Luis F: 13.5 cm/sec Ao max P.7 mmHg DEEPAK(I,D): 3.9 cm Ao mean P.6 mmHg LV V1 mean: 88.0 cm/sec Ao V2 max: 129.0 cm/sec LV V1 mean P.4 mmHg Left Ventricle The left ventricular size, thickness and function are normal. Ejection Fraction = 65%. The transmitr al spectral Doppler flow pattern is normal for age. Right Ventricle The right ventricle is normal in size and function. Atria Normal left and right atrial size and function. Mitral Valve The mitral valve is normal. There is trace mitral regurgitation. Tricuspid Valve The tricuspid valve is normal in structure and function. There is trace tricuspid regurgitation. Aortic Valve The aortic valve is normal in structure and function. No aortic regurgitation is present. Pulmonic Valve The pulmonic valve is not well seen, but is grossly normal. Great Vessels The aortic root is normal size. Normal aortic arch, descending and ascending aorta. Pericardium/Pleura There is no pericardial effusion. Summary Statements The left ventricular size, thickness and function are normal Ejection Fraction = 65%. The transmitral spectral Doppler flow pattern is normal for age. The right ventricle is normal in size and function. Normal left and right atrial size and function. The mitral valve is normal. There is trace mitral regurgitation. The tricuspid valve is normal in structure and function. There is trace tricuspid regurgitation. The aortic valve is normal in structure and function. No aortic regurgitation is present. The pulmonic valve is not well seen, but is grossly normal. The aortic root is normal size. Normal aortic arch, descending and ascending aorta There is no pericardial effusion. Handy Ibarraemberg 04/24/2020, 12:07 PM Ordering Physician: Bob Stacy Referring Physician: ENEIDA BARROW Performed By: Marielle Parker
--- NOTE | 2020-04-24 12:34 | PN ---
Teaching Attending Note Name of Resident: Jorge Quispe ATTENDING PHYSICIAN STATEMENT i reviewed the resident's note and discussed the case with the resident. I agree with the resident's findings and plan as documented. SUBJECTIVE: NO NEW EVENTS OVERNIGHT OBJECTIVE: Vital Signs Temperature 97.5 F L 04/24/20 09:00 Pulse Rate 71 04/24/20 10:03 Respiratory Rate 18 04/24/20 09:59 Blood Pressure 135/76 04/24/20 09:00 O2 Sat by Pulse Oximetry (%) 98 04/24/20 10:03 PE: per resident's note CBCD WBC 6.7 K/mm3 (4.0-10.0) 04/24/20 10:35 RBC 6.20 M/mm3 (4.00-5.60) H 04/24/20 10:35 Hgb 17.6 GM/dL (11.7-16.9) H 04/24/20 10:35 Hct 52.1 % (35.4-49) H 04/24/20 10:35 MCV 84.0 fl (80-96) 04/24/20 10:35 MCHC 33.8 g/dl (32.0-35.9) 04/24/20 10:35 RDW 13.2 % (11.9-15.9) 04/24/20 10:35 Plt Count 218 K/MM3 (134-434) 04/24/20 10:35 MPV 8.8 fl (7.5-11.1) 04/24/20 10:35 CMP Sodium 137 mmol/L (136-145) 04/24/20 10:35 Potassium 3.8 mmol/L (3.5-5.1) 04/24/20 10:35 Chloride 100 mmol/L (98-107) 04/24/20 10:35 Carbon Dioxide 24 mmol/L (21-32) 04/24/20 10:35 Anion Gap 13 MMOL/L (8-16) 04/24/20 10:35 BUN 14.0 mg/dL (7-18) 04/24/20 10:35 Creatinine 1.0 mg/dL (0.55-1.3) 04/24/20 10:35 Random Glucose 79 mg/dL (74-106) 04/24/20 10:35 Calcium 9.4 mg/dL (8.5-10.1) 04/24/20 10:35 Total Bilirubin 1.1 mg/dL (0.2-1) H 04/24/20 10:35 AST 25 U/L (15-37) 04/24/20 10:35 ALT 50 U/L (13-61) 04/24/20 10:35 Alkaline Phosphatase 93 U/L (45-117) 04/24/20 10:35 Total Protein 7.7 g/dl (6.4-8.2) 04/24/20 10:35 Albumin 4.3 g/dl (3.4-5.0) 04/24/20 10:35 CARDIAC ENZYMES Creatine Kinase 139 U/L (26-308) 04/22/20 06:29 Troponin I 0.03 ng/ml (0.00-0.05) 04/22/20 06:29 Echo: Trace TR, trace MR otherwise NL. ASSESSMENT AND PLAN: This patient is a 19yom presented with palpitations x 7days. Patient is endorsed to drinking alcohol and smoking tobacco. He was admitted for workup of alcohol- induced cardiomyopathy. # Palpitations, with NL TSh, NO FURTHER PALPITATIONS # Alcohol and tobacco abuse: alcohol abstinence advised # Polycythemia: follow up with forest landscape ecology professor # Elevated Troponins due to demand ischemia, with NL Trops now DC PATIENT HOME
--- NOTE | 2020-04-24 13:15 | DS ---
Physical Exam: SUBJECTIVE: Patient seen and examined at bedside. No acute events reported overnight. Patient has no concerns or complaints this morning. OBJECTIVE: Vital Signs Period Temp Pulse Resp BP Sys/Bernstein Pulse Ox Last 24 Hr 97.1 F-98.9 F 60-73 16-20 123-135/66-76 98-100 PHYSICAL EXAM GENERAL: AAOx3, in no acute distress HEENT: NCAT, PERRLA, EOMI, sclera anicteric, conjunctiva clear, oropharynx clear w/o exudates. MMM. NECK: Normal ROM, supple, no lymphadenopathy, JVD, or masses LUNGS: CTABL no wheezes/ rhonchi/ rales. No distress, speaks in full sentences. No increased work of breathing. HEART: RRR, normal S1 S2, no M/R/G, peripheral pulses 2+ and equal b/l ABDOMEN: Soft, NTND, + BS. No guarding or rebound. No hepatomegaly or splenomegaly. MSK: ROM WNL EXTREMITIES: Normal inspection. No peripheral edema. No clubbing or cyanosis. NEUROLOGICAL: CN II-XII intact. Normal speech, normal gait, no focal sensorimotor deficits. SKIN: Warm, Dry, normal turgor, no rashes or lesions noted LABS Laboratory Results - last 24 hr CBC, BMP 04/24/20 10:35 04/24/20 10:35 04/24/20 04/24/20 10:35 10:35 WBC 6.7 RBC 6.20 H Hgb 17.6 H Hct 52.1 H MCV 84.0 MCH 28.4 MCHC 33.8 RDW 13.2 Plt Count 218 MPV 8.8 Sodium 137 Potassium 3.8 Chloride 100 Carbon Dioxide 24 Anion Gap 13 BUN 14.0 Creatinine 1.0 Est GFR (CKD-EPI)AfAm 124.14 Est GFR (CKD-EPI)NonAf 107.11 Random Glucose 79 Calcium 9.4 Total Bilirubin 1.1 H AST 25 ALT 50 Alkaline Phosphatase 93 Total Protein 7.7 Albumin 4.3 HOSPITAL COURSE: 19 year old M with no significant PMH presented to the ED with complaint of palpitations for 7 days. Pt endorsed to drinking alcohol and smoking tobacco. 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 Patient had elevated troponins during his stay which downtrended throughout his stay. EKG showed normal sinus rhythm. Cardiology was consulted and they recommended echo to r/o alcohol-induced cardiomyopathy prior to discharge. Echo done inpatient revealed normal valve and chamber function with trace mitral regurgitation. Patient was discharged with outpatient followup with Dr. Bowser to start holter monitoring. Patient was also recommended outpatient followup with hematology for polycythemia with a possible sleep study to rule out TERRENCE. Date of Admission:04/20/20 CXR; 04/20/2020 No acute pathology EKG; 04/21/2020 Normal sinus rhythm; normal EKG. Echo: 04/24/2020 The left ventricular size, thickness and function are normal. Ejection fraction = 65%. The transmitral spectral Dollper flow pattern is normal for age. Right ventricle is normal in size and function. Normal left and right atrial size and function. The mitral valve is normal. There is trace mitral regurgitation. The tricuspid valve is normal in structure and function. There is trace tricuspid regurgitation. The aortic valve is normal in structure and function. No aortic regurgitation is present. Date of Discharge: 04/24/20 Minutes to complete discharge: 36 Discharge Summary Problems reviewed: Yes Reason For Visit: ELEVATED TROPONIN LEVEL Current Active Problems Alcohol abuse (Acute) Demand ischemia (Acute) Elevated troponin (Acute) Palpitations (Acute) Polycythemia (Acute) Condition: Stable - Instructions Diet, Activity, Other Instructions: Your visit: You were admitted to the hospital for palpations. You were found to have normal heart beats during your stay. We did imaging of your heart which showed no abnormalities. You will need to follow up with the value stream manager to evaluate your further. You will need to have a heart monitor on you to monitor your heart activity for 24 hours. Additional Imaging Findings: -We did a study of your heart which showed trace mitral regurgitation. Please follow-up with your Transit Police Officer, Dr. Bowser, about this. Follow up: - Please follow-up with your Transit Police Officer, Dr. Bowser in 1 week. He will be providing the heart monitor for you. -Please follow-up with your timber sizer operator, Dr. Luke, regarding your elevated hemoglobin - Visit with your Primary Care Provider in 2 weeks. If you do not have a primary care provider you may make an appointment with Dr. Singh at the [facility] located at [address] [place] [address] ([phone]). Additional Instructions: -You are being discharged to your home. -Please return to the Emergency Department if you experience worsening pain, fevers, chills, shortness of breath, or chest pain, or if you experience any wor sening, new or concerning symptoms. Referrals: Cb Singh MD [Staff Physician] - 2 Weeks Nena Luke MD [Staff Physician] - 1 Week (for your elevated hemoglobin ) Reed Bowser MD [Staff Physician] - 1 Week Disposition: HOME This patient is new to me today: No Emergency Visit: No Critical Care patient: No - Discharge Referral Referred to [facility] No ATTENDING PHYSICIAN STATEMENT I saw and evaluated the patient. I reviewed the resident's note and discussed the case with the resident. I agree with the resident's findings and plan as documented. SUBJECTIVE: OBJECTIVE: ASSESSMENT AND PLAN:
[2020-04-24 13:49] VITALS: BP 147/72; PULSE 82; TEMP 99.3
== END 2020-04-24 14:00 | disposition home or self-care (01) ==
LOC: JER 11:14 → JERBED 14:41 → UNDOADMOB 14:41 → INTOOBSV 14:41 → JERBED 15:38 → J4S 22:48
PROVIDERS: ADMIT Internal Medicine; ATTEND Internal Medicine
PROC: 3E0337Z Introduction of Electrolytic and Water Balance Substance into Peripheral Vein, Percutaneous Approach (ICD-10-PCS; principal; 2020-04-20)
DX: I24.8 Other forms of acute ischemic heart disease (principal); R00.2 Palpitations; F10.10 Alcohol abuse, uncomplicated; D75.1 Secondary polycythemia; I34.0 Nonrheumatic mitral (valve) insufficiency; Z82.49 Family history of ischemic heart disease and other diseases of the circulatory system; Z81.1 Family history of alcohol abuse and dependence; R79.89 Other specified abnormal findings of blood chemistry; F17.210 Nicotine dependence, cigarettes, uncomplicated
CPT/HCPCS: 36415; 71045-TC-FY; 80048; 80053; 80076; 80307; 82550; 82553; 83735; 84100; 84443; 84484; 85025; 85027; 93005; 93010; 93306-TC; 99285-25; G0378; U0003